=== PATIENT | female | born 1970 | race Native Hawaiian/Other Pacific Islander ===

== ENCOUNTER 2019-03-26 14:03 | Outpatient (CLI) | payer BC | END 2019-03-26 20:02 | disposition home or self-care (01) | LOC: RAD 14:03 | DX: M79.672 Pain in left foot (principal); R22.42 Localized swelling, mass and lump, left lower limb ==

== ENCOUNTER 2022-03-20 10:02 | Outpatient (CLI) | payer OTHER ==
[2022-03-20 11:18] LABS: PLATELET COUNT 219 K/uL (152-353)
== END 2022-03-20 19:18 | disposition home or self-care (01) ==
LOC: LABW 10:02
PROVIDERS: ATTEND Nurse Practitioner
DX: D50.8 Other iron deficiency anemias (principal)
CPT/HCPCS: 36415; 85027

== ENCOUNTER 2022-09-23 16:42 | Outpatient (CLI) | payer OTHER ==
[2022-09-23 16:58] LABS: PLATELET COUNT 245 K/uL (152-353)
== END 2022-09-23 19:40 | disposition home or self-care (01) ==
LOC: LABW 16:42
PROVIDERS: ATTEND Family Medicine
DX: D64.89 Other specified anemias (principal)
CPT/HCPCS: 36415; 85027